=== PATIENT | male | born 1985 | race Caucasian/White ===

== ENCOUNTER 2018-03-28 23:09 | Emergency (ER) | payer MEDICAID ==
[~2018-03-28] VITALS: Ht 152.4 cm; Wt 66.0 kg
[2018-03-29] MEDS ORDERED: DiphenhydrAMINE HCL 25 MG CAPSULE PO ONE (02:30)
[2018-03-29] MEDS ORDERED: HALOPERIDOL 5 MG TABLET PO ONE (02:30)
[2018-03-29] MEDS ORDERED: LORazepam 2 MG TABLET PO ONE (02:30)
[2018-03-29 04:35] VITALS: BP 129/86
== END 2018-03-29 10:30 | disposition home or self-care (01) ==
LOC: EMS 23:11
DX: F41.9 Anxiety disorder, unspecified (principal); F32.9 Major depressive disorder, single episode, unspecified; F15.10 Other stimulant abuse, uncomplicated; F11.90 Opioid use, unspecified, uncomplicated; F17.210 Nicotine dependence, cigarettes, uncomplicated
CPT/HCPCS: 99285